=== PATIENT | male | born 1955 | race Caucasian/White ===

== ENCOUNTER 2016-12-12 16:58 | Inpatient (IN) | payer BC ==
[~2016-12-12] VITALS: Ht 182.9 cm; Wt 63.5 kg
[2016-12-12 17:02] VITALS: BP 124/76; PULSE 96; RESP 16; TEMP 97.6; O2SAT 95
--- NOTE | 2016-12-12 17:08 | NUR ---
Patient to ER bed 8 to gown for evaluation. Side rails up. Report given to TRUNG WEAVER.
--- NOTE | 2016-12-12 17:17 | NUR ---
GARY Rogers at bedside examining patient.
--- NOTE | 2016-12-12 17:23 | NUR ---
Pt brought in by daughter in stable condition. Pt able to ambulate to bed 8. Pt sent here by Dr. Isaac for newly dx for massive hepatic neoplasm. Pt present w/ distended abd w/ hard to palpatation. Pt present w/ bilat pitting edema to lower extremity. Pt has hx of ascites, cachexia and anasarca. Pt stated that he has been having trouble w/ bowel movements, pt stated that he had small bowel movements earlier today. Pt denies any pain at this time. -sob -chest pain. No acute distress noted at this time, will continue to monitor
[2016-12-12] MEDS ORDERED: NACL 0.9% 1,000 ML IV ONE (19:16)
--- NOTE | 2016-12-12 19:25 | NUR ---
Care and report recieved from Jennifer WEAVER. Pt was referred to by his primary MD for his existing cancer for chemotherapy. Pt is very distended. Pt states that he has not had a solid BM for over week. Denies N and V. Will continue to monitor via fellmongery worker. No distress noted.
[2016-12-12 19:38] LABS: BASOPHILS % (AUTO) 0.3 % (0.0-2.0); EOSINOPHILS % (AUTO) 0.3 % (0.0-4.0); HEMATOCRIT 48.4 % (36-54); LYMPHOCYTES # (AUTO) 1.5 K/uL (1.0-5.5); LYMPHOCYTES % (AUTO) 10.3 % (20.5-51.5); MEAN CORPUSCULAR HEMOGLOBIN 32 pg (27-31); MEAN CORPUSCULAR HGB CONC 33 % (32-36); MEAN CORPUSCULAR VOLUME 98 fL (79.0-98.0); MONOCYTES % (AUTO) 6.7 % (1.7-9.3); NEUTROPHILS # (AUTO) 12.4 K/uL (1.8-7.7); NEUTROPHILS % (AUTO) 82.4 % (40.0-70.0); PLATELET COUNT (AUTO) 295 K/uL (130-430); RED BLOOD CELL COUNT(AUTO) 4.96 MIL/uL (4.2-6.2); RED CELL DISTRIBUTION WIDTH 15.8 % (9.0-15.0); WHITE BLOOD COUNT (AUTO) 14.9 K/uL (4.8-10.8)
--- NOTE | 2016-12-12 19:45 | NUR ---
# 20 gauge angiocath placed to L AC. Use of asceptic technique. Opsite placed over site. Blood return noted. Flushed with 10 cc of normal saline. No evidence of infiltration noted. Patient tolerated well.
[2016-12-12 19:46] LABS: INR 1.1 (0.80-1.20); PROTHROMBIN TIME 11.6 SECS (9.5-12.5)
[2016-12-12 19:47] LABS: CALCIUM 8.4 mg/dL (8.4-11.0); CREATININE 0.68 mg/dL (0.55-1.30); POTASSIUM 4.1 mmol/L (3.5-5.1)
--- NOTE | 2016-12-12 19:55 | NUR ---
Reviewed sepsis protocol with Dr. Worley. No change in orders at this time.
[2016-12-12 20:00] LABS: ALBUMIN 2.3 g/dL (3.4-4.8); TOTAL BILIRUBIN 0.9 mg/dL (0.0-1.0)
--- NOTE | 2016-12-12 20:58 | NUR ---
Dr. Bo at bedside to examine pt and discuss plan of care.
[2016-12-12 21:42] LABS: BILIRUBIN,URINE NEGATIVE (NEGATIVE); BLOOD, URINE NEGATIVE (NEGATIVE); CLARITY/URINE CLEAR (CLEAR); COLOR,URINE YELLOW (YELLOW); GLUCOSE,URINE NEGATIVE (NEGATIVE); KETONES,URINE NEGATIVE (NEGATIVE); LEUKOCYTE ESTERASE ,URINE NEGATIVE (NEGATIVE); NITRITE, URINE NEGATIVE (NEGATIVE); PROTEIN URINE NEGATIVE (NEGATIVE)
[2016-12-12] MEDS ORDERED: ACETAMINOPHEN 325 MG TABLET PO PRN (22:00)
[2016-12-12] MEDS ORDERED: TRIA1CAP53 PO (22:33)
--- NOTE | 2016-12-12 22:35 | NUR ---
Patient will be admitted to care of Dr. Goldsmith. Admitted to Med Surg unit. Will go to room 118A. Summary report printed. Report given to admitting RN.
--- NOTE | 2016-12-12 22:40 | NUR ---
Admission Note Received patient from ER with diagnosis of Abdominal mass. Initial Plan of Care discussed-patient verbalized understanding. Family at bedside. Oriented to room, call light, pain management and safety.
[2016-12-12] MEDS ORDERED: DOCUSATE SODIUM 100 MG CAPSULE PO ONE (22:45)
--- NOTE | 2016-12-12 22:50 | NUR ---
CONSULTATION PAGED REASON FOR CONSULTATION:ABDOMINAL MASS/ ASCITES/ PERIPHERAL EDEMA WAS CONSULT CALLED?Y PERSON WHO WAS NOTIFIED:TRICE CONSULTING PHYSICIAN:VENANCIO HOLMAN INSULATION ENGINEMAN SPECIALTY:GI INSULATION ENGINEMAN PHONE NUMBER:[phone]
--- NOTE | 2016-12-12 22:50 | NUR ---
Admitting Notes Admitted a 61y.o.male from , here for work-up and start of chemo per MD. Pt.alert, awake oriented x4. Noted pt.with distended abdomen, per pt.he is constipated. No nausea and vomiting. With saline lock to L AC. Noted pt.with productive cough, will call RT for RT treatments. Unit orientation done. Made comfortable in bed.
--- NOTE | 2016-12-12 22:53 | NUR ---
CONSULTATION PAGED REASON FOR CONSULTATION:ABDOMINAL MASS/ASCITES/PERIPHERAL EDEMA WAS CONSULT CALLED?Y PERSON WHO WAS NOTIFIED:WEST CONSULTING PHYSICIAN:DESTINEE MENDOZA MICA MINER BLASTING SPECIALTY:ONCOLOGY/HEMATOLOGY MICA MINER BLASTING PHONE NUMBER:[phone]
[2016-12-12] MEDS: NACL 0.9% 1,000 ML IV SCH (23:17)
[2016-12-12 23:21] VITALS: BP 128/78; PULSE 85
[2016-12-12] MEDS: ALBUTEROL SULFATE 0.083% 2.5 MG/3 ML VIAL.NEB INH PRN (23:21)
[2016-12-12] MEDS: IPRATROPIUM BROM 0.5 MG/2.5 ML VIAL.NEB (ATROVENT) INH PRN (23:21)
--- NOTE | 2016-12-13 00:15 | NUR ---
Nurse rounds Pt.resting. Breathing even and non labored. Noted with occasional coughing.
[2016-12-13] MEDS ORDERED: LEVOFLOXACIN 500 MG/D5W 100 ML IV ONE (00:33)
[2016-12-13] MEDS: LEVOFLOXACIN 500 MG/D5W 100 ML IV SCH ×2 (00:35→22:22)
[2016-12-13 01:47] VITALS: BP 119/73; PULSE 91; RESP 18; TEMP 96.2; O2SAT 93
[2016-12-13 02:00] VITALS: BP 135/86; PULSE 82; RESP 18; TEMP 98.2; O2SAT 96
[2016-12-13] MEDS: ONDANSETRON HCL 4 MG/2 ML VIAL IVP PRN (04:06)
[2016-12-13 04:45] VITALS: BP 126/57; PULSE 87; RESP 20; TEMP 99.1; O2SAT 93
--- NOTE | 2016-12-13 06:15 | NUR ---
End of shift noted Pt.asleep this time. Breathing even and non labored.
[2016-12-13 07:25] LABS: BASOPHILS % (AUTO) 0.2 % (0.0-2.0); EOSINOPHILS # (AUTO) 0.1 K/uL (0.0-0.4); EOSINOPHILS % (AUTO) 0.5 % (0.0-4.0); HEMATOCRIT 42.4 % (36-54); HEMOGLOBIN 14.4 g/dL (14.0-18.0); LYMPHOCYTES # (AUTO) 1.3 K/uL (1.0-5.5); LYMPHOCYTES % (AUTO) 10.8 % (20.5-51.5); MEAN CORPUSCULAR HEMOGLOBIN 33 pg (27-31); MEAN CORPUSCULAR HGB CONC 34 % (32-36); MEAN CORPUSCULAR VOLUME 98 fL (79.0-98.0); MONOCYTES % (AUTO) 8.5 % (1.7-9.3); NEUTROPHILS # (AUTO) 9.6 K/uL (1.8-7.7); PLATELET COUNT (AUTO) 219 K/uL (130-430); RED BLOOD CELL COUNT(AUTO) 4.35 MIL/uL (4.2-6.2)
[2016-12-13 07:27] LABS: CALCIUM 7.9 mg/dL (8.4-11.0); CREATININE 0.67 mg/dL (0.55-1.30); POTASSIUM 3.8 mmol/L (3.5-5.1)
[2016-12-13 07:31] LABS: TOTAL PROTEIN, SERUM 6.1 g/dL (6.4-8.3)
[2016-12-13 07:47] LABS: INR 1.1 (0.80-1.20); PROTHROMBIN TIME 11.6 SECS (9.5-12.5)
--- NOTE | 2016-12-13 08:00 | NUR ---
Patient at rest, A/Ox4. IV on left arm, #18, infused with Ns at 100ml/hr, intact and patent. Call light in place, bed at lowest position, will continue to monitor.
--- NOTE | 2016-12-13 09:17 | NUR ---
Nutrition Update Todd Scale 15 noted. Pt admitted for abd mass, ascites, peripheral edema. Diet: clear liquid BMI: 19.4 kg/m2 RD to follow per nutrition care standards.
[2016-12-13] MEDS: SPIRONOLACTONE 25 MG TABLET (ALDACTONE) PO SCH (09:24)
[2016-12-13] MEDS: FUROSEMIDE 40 MG/4 ML VIAL IVP SCH (09:24)
[2016-12-13] MEDS: DOCUSATE SODIUM 100 MG CAPSULE PO SCH ×2 (09:25→22:00)
[2016-12-13] MEDS: PANTOPRAZOLE SODIUM 40 MG/VIAL (PROTONIX) IVP SCH (09:25)
[2016-12-13] MEDS: ENOXAPARIN SODIUM 30 MG/0.3 ML SYRINGE SUBCUT SCH (09:25)
[2016-12-13] MEDS: NACL 0.9% 1,000 ML IV SCH ×2 (11:13→22:22)
--- NOTE | 2016-12-13 11:23 | NUR ---
Patient is at rest, no signs of distress noted.
[2016-12-13 12:09] VITALS: BP 121/75; PULSE 86; RESP 19; TEMP 97; O2SAT 100
--- NOTE | 2016-12-13 13:10 | NUR ---
Patient to CT scan of the abdomen with contrast. Consent forms are signed, and patient is aware of the risks and benefits of the procedure.
[2016-12-13] MEDS ORDERED: IOHEXOL 100 ML IV ONE (13:55)
--- NOTE | 2016-12-13 15:37 | NUR ---
Patient is at rest, no signs of distress noted.
[2016-12-13 16:18] VITALS: BP 115/64; PULSE 77; RESP 18; TEMP 99.3; O2SAT 96
[2016-12-13] MEDS ORDERED: BISACODYL 5 MG TABLET.DR (DULCOLAX) PO ONE (17:00)
[2016-12-13] MEDS ORDERED: GOLYTELY / COLYTE SOLUTION 4 LITERS PO ONE (18:00)
--- NOTE | 2016-12-13 18:02 | NUR ---
Patient is eating a regular diet food, with no discomfort noted. Will continue to monitor.
--- NOTE | 2016-12-13 19:45 | NUR ---
Initial Note Patient in bed at this time resting, respirations even and unlabored. Patient denies any pain or discomfort. Patient is aware that he is NPO at midnight. IV site patent with no signs or symptoms of infiltration noted. call light in hand. Fall and safety precautions in place. Will continue to monitor.
[2016-12-13 20:00] VITALS: BP 139/52; PULSE 82; RESP 20; TEMP 98.1; O2SAT 95
[2016-12-13] MEDS: IPRATROPIUM BROM 0.5 MG/2.5 ML VIAL.NEB (ATROVENT) INH PRN (21:37)
[2016-12-13] MEDS: ALBUTEROL SULFATE 0.083% 2.5 MG/3 ML VIAL.NEB INH PRN (21:37)
[2016-12-13] MEDS: ZOLPIDEM TARTRATE 5 MG TABLET PO SCH (22:00)
--- NOTE | 2016-12-13 22:03 | NUR ---
Medication Administered Ambien to patient as ordered per MD. Explained patient the possible side effects of the medication verbalized understanding. Educated patient who is alert and oriented to call for assistance if he wants to get out of bed to use the restroom, verbalized understanding and was able to show proper demonstration of use of call light. Call light in hand. Bed in lowest position with bed alarm on. Will continue to monitor. Patient.
[2016-12-14] VITALS (9 sets, daily range): BP systolic 110–129; BP diastolic 64–74; PULSE 71–88; RESP 12–19; TEMP 96–98.9; O2SAT 83–95; Ht 182.9 cm; Wt 63.5 kg
--- NOTE | 2016-12-14 00:45 | NUR ---
RN ROUNDS Patient in bed at this time resting, respirations even and unlabored. No acute distress noted at this time. Vital signs stable. Call light in hand. Fall and safety precautions in place. Will continue to monitor.
--- NOTE | 2016-12-14 03:41 | NUR ---
RN ROUNDS Patient in bed at this time resting, respirations even and unlabored. No acute distress noted at this time. Call light in hand. Fall and safety precautions in place. Will continue to monitor.
--- NOTE | 2016-12-14 06:45 | NUR ---
Closing Note Patient in bed at this time resting, respirations even and unlabored. All due meds given, all needs met. Patient has been NPO since midnight. Call light in hand. Fall and safety precautions in place. Will endorse to day shift nurse.
[2016-12-14] MEDS: ALBUTEROL SULFATE 0.083% 2.5 MG/3 ML VIAL.NEB INH SCH ×2 (07:00→15:00)
--- NOTE | 2016-12-14 07:32 | NUR ---
Patient at rest, A/Ox4. IV on left arm, #18, infused with Ns at 100ml/hr, intact and patent. Patient is ambulatory with assistance. NPO at this time. Call light in place, bed at lowest position, will continue to monitor.
[2016-12-14 07:50] LABS: BASOPHILS # (AUTO) 0.1 K/uL (0.0-0.2); BASOPHILS % (AUTO) 0.5 % (0.0-2.0); EOSINOPHILS # (AUTO) 0.1 K/uL (0.0-0.4); EOSINOPHILS % (AUTO) 0.9 % (0.0-4.0); HEMATOCRIT 41.8 % (36-54); HEMOGLOBIN 14.2 g/dL (14.0-18.0); LYMPHOCYTES # (AUTO) 1.2 K/uL (1.0-5.5); LYMPHOCYTES % (AUTO) 10.4 % (20.5-51.5); MEAN CORPUSCULAR HEMOGLOBIN 33 pg (27-31); MEAN CORPUSCULAR HGB CONC 34 % (32-36); MEAN CORPUSCULAR VOLUME 98 fL (79.0-98.0); MONOCYTES # (AUTO) 0.8 K/uL (0.0-1.0); MONOCYTES % (AUTO) 6.7 % (1.7-9.3); NEUTROPHILS # (AUTO) 9.7 K/uL (1.8-7.7); NEUTROPHILS % (AUTO) 81.5 % (40.0-70.0); PLATELET COUNT (AUTO) 198 K/uL (130-430); RED BLOOD CELL COUNT(AUTO) 4.28 MIL/uL (4.2-6.2); RED CELL DISTRIBUTION WIDTH 16.2 % (9.0-15.0); WHITE BLOOD COUNT (AUTO) 11.9 K/uL (4.8-10.8)
--- NOTE | 2016-12-14 08:15 | NUR ---
Patient to liver biopsy. Tolerated transport without distress.
[2016-12-14 08:19] LABS: ALBUMIN 1.9 g/dL (3.4-4.8); CALCIUM 7.8 mg/dL (8.4-11.0); CREATININE 0.68 mg/dL (0.55-1.30); POTASSIUM 3.5 mmol/L (3.5-5.1); TOTAL BILIRUBIN 1.1 mg/dL (0.0-1.0)
[2016-12-14] MEDS: ENOXAPARIN SODIUM 30 MG/0.3 ML SYRINGE SUBCUT SCH (08:31)
[2016-12-14] MEDS: FUROSEMIDE 40 MG/4 ML VIAL IVP SCH (08:32)
[2016-12-14] MEDS: PANTOPRAZOLE SODIUM 40 MG/VIAL (PROTONIX) IVP SCH (08:32)
[2016-12-14] MEDS: SPIRONOLACTONE 25 MG TABLET (ALDACTONE) PO SCH (09:00)
[2016-12-14] MEDS: DOCUSATE SODIUM 100 MG CAPSULE PO SCH ×2 (09:00→21:08)
[2016-12-14] MEDS ORDERED: HYDROmorphone 1 MG INJ. 1 MG/ML AMPUL IVP ONE (09:15)
[2016-12-14] MEDS: ONDANSETRON HCL 4 MG/2 ML VIAL IVP PRN (09:27)
[2016-12-14] MEDS ORDERED: HYDROmorphone 2 MG/ML VIAL ONE (09:31)
[2016-12-14] MEDS ORDERED: HYDROmorphone 1 MG INJ. 1 MG/ML AMPUL ONE (09:38)
--- NOTE | 2016-12-14 10:15 | NUR ---
Patient has returned to room after biopsy. V/s stable at this time (96F, pulse 79, respiration 14, BP 110/74, pulse Ox 94%)
--- NOTE | 2016-12-14 11:10 | NUR ---
Patient is at rest, no signs of distress noted. v/s is stable 30 minute return to room (tem 97F, 80 pulse, respiration 12, bp 115/67, pulse 93%)
--- NOTE | 2016-12-14 13:10 | NUR ---
Patient is resting, but stating that he's hungry and wants to eat. Called GI consult. Awaiting call back.
--- NOTE | 2016-12-14 14:00 | NUR ---
GI consult is called regarding patient's diet. Awaiting call back.
[2016-12-14 14:08] LABS: AFP, TUMOR MARKER 4.9 ng/mL (0.0-8.3)
--- NOTE | 2016-12-14 15:10 | NUR ---
Patient's demanding food. GI consult is called regarding diet. Awaiting call back.
--- NOTE | 2016-12-14 16:10 | NUR ---
Patient demands to eat. GI consult is called, awaiting call back.
--- NOTE | 2016-12-14 17:30 | NUR ---
Dr. Goldsmith assessed patient. Regular diet is prescribed after assessment and consultation of GI doctor.
[2016-12-14] MEDS ORDERED: LACTULOSE 20 GM/30 ML UDC PO ONE (18:15)
--- NOTE | 2016-12-14 18:40 | NUR ---
Patient eats regular dinner. No signs of distress noted at this time.
--- NOTE | 2016-12-14 19:45 | NUR ---
initial nursing notes: Patient is awake. Patient has IV fluid infusing on the left AC IV access. Instructed patient regarding proper use of call light when getting out of bed to be assisted by staff to prevent falls/injuries. Patient able to demonstrate proper use of call light.
[2016-12-14] MEDS: LACTULOSE 20 GM/30 ML UDC PO SCH (21:03)
[2016-12-14] MEDS: ZOLPIDEM TARTRATE 5 MG TABLET PO SCH (21:04)
[2016-12-14] MEDS: NACL 0.9% 1,000 ML IV SCH (21:10)
--- NOTE | 2016-12-14 21:45 | NUR ---
nursing rounds: Patient calmly resting in bed. Patient denies of having pain. Dressing on the abdomen from the biopsy is dry and intact.
--- NOTE | 2016-12-14 23:45 | NUR ---
nursing rounds: Patient sleeping in bed. Patient has no respiratory distress.
[2016-12-15] MEDS: LEVOFLOXACIN 500 MG/D5W 100 ML IV SCH (00:04)
[2016-12-15 01:30] VITALS: BP 125/77; PULSE 92; RESP 18; TEMP 98.7; O2SAT 95
--- NOTE | 2016-12-15 01:45 | NUR ---
nursing rounds: Patient calmly resting in bed. Patient has no shortness of breath.
[2016-12-15 03:32] VITALS: BP 125/70; PULSE 82; RESP 17; TEMP 98.5; O2SAT 97
--- NOTE | 2016-12-15 03:45 | NUR ---
nursing rounds: Patient is able to ambulate to the bathroom. Patient has no episode of falls and no injuries.
[2016-12-15] MEDS: NACL 0.9% 1,000 ML IV SCH ×2 (05:11→09:37)
--- NOTE | 2016-12-15 05:45 | NUR ---
nursing rounds: Patient calmly resting in bed. Patient has no shortness of breath.
[2016-12-15] MEDS: ALBUTEROL SULFATE 0.083% 2.5 MG/3 ML VIAL.NEB INH SCH ×3 (06:28→15:00)
--- NOTE | 2016-12-15 07:20 | NUR ---
initial notes: pt on bed. stable. i.v. access patent. Discussed plan of care. Call light within reach. Report received at bedside.
[2016-12-15 07:29] LABS: BASOPHILS % (AUTO) 0.4 % (0.0-2.0); EOSINOPHILS # (AUTO) 0.1 K/uL (0.0-0.4); EOSINOPHILS % (AUTO) 0.9 % (0.0-4.0); HEMATOCRIT 39.5 % (36-54); HEMOGLOBIN 13.9 g/dL (14.0-18.0); LYMPHOCYTES # (AUTO) 1.3 K/uL (1.0-5.5); MEAN CORPUSCULAR HEMOGLOBIN 34 pg (27-31); MEAN CORPUSCULAR HGB CONC 35 % (32-36); MEAN CORPUSCULAR VOLUME 96 fL (79.0-98.0); MONOCYTES # (AUTO) 0.9 K/uL (0.0-1.0); MONOCYTES % (AUTO) 7.6 % (1.7-9.3); NEUTROPHILS # (AUTO) 9.4 K/uL (1.8-7.7); NEUTROPHILS % (AUTO) 80.1 % (40.0-70.0); PLATELET COUNT (AUTO) 244 K/uL (130-430); RED CELL DISTRIBUTION WIDTH 15.8 % (9.0-15.0); WHITE BLOOD COUNT (AUTO) 11.7 K/uL (4.8-10.8)
--- NOTE | 2016-12-15 07:47 | NUR ---
closing nursing notes: Patient is awake, alert and oriented X 4. Patient is in no acute respiratory distress. No episodes of fall and no injuries throughout the elderly caregiver. Provided nursing report to incoming morning shift nurse, Gretel Hdez RN, at patient's bedside.
[2016-12-15 07:51] LABS: ALBUMIN 1.9 g/dL (3.4-4.8); CALCIUM 7.9 mg/dL (8.4-11.0); CREATININE 0.6 mg/dL (0.55-1.30); POTASSIUM 3.6 mmol/L (3.5-5.1); TOTAL BILIRUBIN 1.2 mg/dL (0.0-1.0)
[2016-12-15 08:00] VITALS: BP 113/71; PULSE 82; RESP 16; TEMP 98.7
[2016-12-15] MEDS: PANTOPRAZOLE SODIUM 40 MG/VIAL (PROTONIX) IVP SCH (09:35)
[2016-12-15] MEDS: LACTULOSE 20 GM/30 ML UDC PO SCH (09:35)
[2016-12-15] MEDS: FUROSEMIDE 40 MG/4 ML VIAL IVP SCH (09:36)
[2016-12-15] MEDS: ENOXAPARIN SODIUM 30 MG/0.3 ML SYRINGE SUBCUT SCH (09:37)
[2016-12-15] MEDS: DOCUSATE SODIUM 100 MG CAPSULE PO SCH (09:37)
[2016-12-15] MEDS: SPIRONOLACTONE 25 MG TABLET (ALDACTONE) PO SCH (09:38)
--- NOTE | 2016-12-15 10:00 | NUR ---
rounds: pt resting. no distress noted.
[2016-12-15] MEDS: ALBUTEROL SULFATE 0.083% 2.5 MG/3 ML VIAL.NEB INH PRN (10:11)
[2016-12-15] MEDS: IPRATROPIUM BROM 0.5 MG/2.5 ML VIAL.NEB (ATROVENT) INH PRN (10:11)
[2016-12-15 11:53] VITALS: BP 102/52; PULSE 92; RESP 16; TEMP 98.2; O2SAT 96
--- NOTE | 2016-12-15 12:14 | NUR ---
rounds: pt using the toilet. no distress noted.
--- NOTE | 2016-12-15 13:00 | NUR ---
Harsh called: Dr. Bo called. Informed biopsy is still pending and result will be available on Sunday. He will visit the pt after 5pm today.
--- NOTE | 2016-12-15 14:00 | NUR ---
rounds: pt on the bed resting. no distress noted. informed M.D. will see him after 5pm.
[2016-12-15 16:40] VITALS: BP 116/77; PULSE 88; RESP 18; TEMP 98.3; O2SAT 98
--- NOTE | 2016-12-15 17:00 | NUR ---
[facility] rounds: Dr. Goldsmith seen the pt. with discharge order.
--- NOTE | 2016-12-15 18:30 | NUR ---
Spoke to Agus Santiago ok to discharge patient home today , to follow up home health with family service caseworker in am.
[2016-12-15 19:00] VITALS: BP 116/77; PULSE 88; RESP 18; TEMP 98.3; O2SAT 98
[2016-12-15] MEDS ORDERED: SPIR25TA (19:09)
--- NOTE | 2016-12-15 19:30 | NUR ---
D/C Patient Patient given medication reconciliation form and D/C instructions. Exit Care provided. Patient verbalized understanding. MD discussed with patient the results and treatment provided. Ambulatory with steady gait for discharge to home. Patient in stable condition, ID band removed. IV catheter removed, intact and dressing applied, no active bleeding. Rx given. Patient educated on pain management. All belongings sent with patient.
--- NOTE | 2016-12-16 13:52 | NUR ---
[facility] PLANNING - SET UP HOME HEALTH ATTEMPTING TO DETERMINE HOME HEALTH VENDOR TO ARRANGE FOR PATIENT; PLACED CALL TO PMTre/DR. SAAB FOR PREFERRED VENDOR THRU EXCHANGE AT 1330; AWAITING CALL BACK. ALSO, LEFT MESSAGE FOR Pt's DTR/ANUP AT [phone] NOT AVAILABLE TO ANSWER IF Pt HAS HAD HOME HEALTH BEFORE. CALLED TO [facility]; THEY ARE NOT CONTRACTED WITH [employer] PPO INS. CALLED TO [facility]; S/W ASNDIE; FAXED INFO; SHE IS GOING TO REVIEW AND CALL BACK TO THIS CM IF ABLE TO ACCEPT. ORDERED DRESSING CHANGES; UNABLE TO FIND OUT ANY INFO ABOUT WHAT THE DRESSING CHANGES ARE FOR FROM NOTES. Addendum: 12/16/16 at 1523 by Ken Wright RN REC'D C/B FROM SANDIE AT [facility] WHO STATED THEY DO NOT HAVE ANY [facility] STAFF TO SEE THE Pt TOMORROW AND WOULD NOT BE ABLE TO ACCEPT FOR SERVICES. THEN...REC'D C/B FROM DR. SELLERS WHO STATED HIS PREFERRED HOME HEALTH IS [facility]: [phone]. C/T AGENCY; REC'D C/B FROM [facility] TO ARRANGE SERVICES; FAXED REFERRAL INFO TO: [phone]; AND, RYAN/KEN UNDERSTOOD THAT THEY WILL INITIATE SERVICES FOR Pt ON 12/18/16. CM INFORMED Pt IS TO FOLLOW-UP WITH DR. SELLERS ON THAT DATE; THE DRESSING CHANGES ARE RELATED TO BIOPSY SITES; AND HOME PT WOULD NOT BE NEEDED OR ARRANGED ON THE WEEKEND. PLACED A CALL TO Pt's DTRoxann/ANUP: [phone]; LEFT MESSAGE REQUESTING C/B RE: HOME HEALTH; NO CALL BACK FROM DAUGHTER. CALLED TO UPDATE PATIENT; HOWEVER, HE WAS NOT AVAILABLE; LEFT MESSAGE AT: [phone] FOR PATIENT WITH NAME AND CONTACT # FOR [facility]; AND, CALLED BACK TO DAUGHTER TO LEAVE SAME INFO. DC ORDER FOR HH ALSO INDICATED Pt NEEDS HELP GOING TO/FROM BATHROOM AND WITH ADLs. CM EDUCATED THESE SERVICES ARE NOT COVERED BY HH AGENCY OR BY INSURANCE AND PROVIDED OFFICE #: [phone] FOR THEM TO CALL BACK ON SUNDAY IF THEY REQUIRE ANY CAREGIVER AGENCY REFERRAL CONTACTS.
[2016-12-16 19:36] LABS: CERULOPLASMIN 42.1 mg/dL (16.0-31.0)
--- NOTE | 2016-12-18 13:11 | NUR ---
DISCHARGE PLANNING Received call from Ronald at [facility], denied patient. Faxed home health referral to [facility] and [facility] with noted CM Rafa Solorzano at [facility] [phone] [facility] Ref#[id number] for insurance auth. DCP will follow up. Addendum: 12/18/16 at 1642 by Rebecca Stiles DP Spoke with Rock at [facility] unable to accept patient due to not contracted. Spoke with Madhavi at [facility] unable to accept patient due to not contracted. Faxed home health referral to [facility] [phone]. Called and spoke with intake dept who will return call, currently on other line. Will follow up.
--- NOTE | 2016-12-19 10:02 | NUR ---
Phoned [facility]. They cannot accept patient's insurance. Danielle RIVERS [employer] will follow up.
--- NOTE | 2016-12-19 10:33 | NUR ---
DISCHARGE PLANNING Called [facility] spoke with Mele who transferred my call to spoke with Pavan at [facility] who stated contracted home health [facility], [facility], and [facility]. Faxed home health referral to [phone] and [phone]. Will follow up. Addendum: 12/19/16 at 1134 by Rebecca Stiles DP Spoke with Pramod at [facility] who accepted. Pramod stated patient has a 20% Co0-Pay cost $26.77 per RN visit and $27.22 per PT visit. Called and spoke with patient [phone] who stated he was going to see his PCP tomorrow and will make his decision if he wanted home health. Pramod at [facility] was made aware and will follow up with patient. Addendum: 12/19/16 at 1134 by Rebecca Stiles DP [phone]
--- NOTE | 2016-12-20 12:28 | NUR ---
Discharge Follow Up Phone Call BACCARAT DEALER phoned patient, . Patient sounded depressed and irritated. Patient was preparing for his visit to his PCP, Dr Lou, today. Discussed that the DC Summary mentioned a follow up with Dr Villalobos on 12/22/16. Patient stated he was unaware. Will discuss with PCP today. Patient stated he did not want to pay for home health services at this time as he did not believe it would be helpful. Patient stated he lives with his but she works. He has other family members who might reluctantly help out but he may need long-term help. Discussed. Patient will call back if he would like further information. Die Hardener will remain available.
== END 2016-12-15 19:33 | disposition home health service (06) | DRG 375 ==
LOC: SED 17:35 → SMU 22:11
PROVIDERS: ADMIT Family Medicine; ATTEND Family Medicine
PROC: 0FB03ZX Excision of Liver, Percutaneous Approach, Diagnostic (ICD-10-PCS; principal; 2016-12-14)
DX: C18.9 Malignant neoplasm of colon, unspecified (principal); J44.1 Chronic obstructive pulmonary disease with (acute) exacerbation; Z68.1 Body mass index [BMI] 19.9 or less, adult; E72.20 Disorder of urea cycle metabolism, unspecified; R18.8 Other ascites; E44.1 Mild protein-calorie malnutrition; C78.7 Secondary malignant neoplasm of liver and intrahepatic bile duct; R16.0 Hepatomegaly, not elsewhere classified; F17.210 Nicotine dependence, cigarettes, uncomplicated; M32.9 Systemic lupus erythematosus, unspecified; Z88.0 Allergy status to penicillin; Z79.899 Other long term (current) drug therapy
CPT/HCPCS: 36415; 47000; 71010; 76705; 80053; 81003; 82105; 82140-TC; 82272; 82390; 83540-TC; 83690-TC; 83735-TC; 83880; 84484; 85025; 85610-TC; 85730-TC; 88307; 88313; 88341; 88342; 93005; 94640; 94760; 96360; 99285; C9113; J1170; J1650; J1940; J1956; J2405; J7030; Q9967